=== PATIENT | male | born 1995 | race Caucasian/White ===

== ENCOUNTER 2024-05-09 18:02 | Emergency (ER) | payer OTHER ==
[~2024-05-09] VITALS: Ht 185.4 cm; Wt 63.6 kg
[2024-05-09 19:17] VITALS: BP 117/87; PULSE 85; RESP 14; TEMP 98; O2SAT 98
== END 2024-05-09 19:19 ==
LOC: ER 18:02
DX: S51.012A Laceration without foreign body of left elbow, initial encounter (principal); S81.811A Laceration without foreign body, right lower leg, initial encounter; X58.XXXA Exposure to other specified factors, initial encounter; Y93.89 Activity, other specified; Y92.89 Other specified places as the place of occurrence of the external cause; Y99.8 Other external cause status
CPT/HCPCS: 12002; 99284; J7030; A6449